=== PATIENT | male | born 1940 | race Caucasian/White ===

== ENCOUNTER 2017-01-01 21:18 | Emergency (ER) | payer MEDICARE, OTHER ==
[~2017-01-01] VITALS: Ht 182.9 cm; Wt 94.4 kg
[2017-01-01 21:21] VITALS: BP 132/90; PULSE 85; RESP 16; TEMP 99.3; O2SAT 96
[2017-01-01] MEDS ORDERED: ROSU10 PO (21:54)
[2017-01-01] MEDS ORDERED: ATEN50TA PO (21:54)
--- NOTE | 2017-01-01 21:54 | PD ---
HPI . Abdominal pain Chief Complaint: Abdominal Pain Time Seen by Provider: 21:44 Travel History International Travel<30 days: No Contact w/Intl Traveler<30days: No Traveled to known affect area: No History of Present Illness HPI Patient presents with abdominal pain that started about 7:00 this morning. He states that the pain has waxed and waned and come and gone. He denies any associated symptoms such as fever, nausea, vomiting, diarrhea, anorexia. No urinary tract symptoms. He reports a prior similar history associated with diverticulitis. PFSH Past Medical History Cardiovascular Problems: Yes Social History Tobacco Use: No Allergies-Medications (Allergen,Severity, Reaction): Coded Allergies: No Known Allergies (Unverified , 01/01/17) Reported Meds & Prescriptions Reported Meds & Active Scripts Active Reported Crestor (Rosuvastatin Calcium) 10 Mg Tab 10 Mg PO 3X PER WEEK Atenolol 50 Mg Tab 50 Mg PO DAILY Review of Systems Except as stated in HPI: all other systems reviewed are Neg General / Constitutional: No: Fever, Chills Gastrointestinal: Positive: Abdominal Pain, No: Nausea, Vomiting, Diarrhea, Loss of Appetite Genitourinary: No: Urgency, Frequency, Dysuria Physical Exam Narrative GENERAL: Healthy-appearing older van no acute distress. SKIN: Warm and dry. HEAD: Atraumatic. Normocephalic. EYES: Pupils equal and round. ENT: No nasal bleeding or discharge. Mucous membranes pink and moist. NECK: Trachea midline. Neck is supple. CARDIOVASCULAR: Regular rate and rhythm. Heart sounds are normal. RESPIRATORY: No accessory muscle use. Lungs are clear with full air movement throughout. GASTROINTESTINAL: Abdomen soft, non-tender, nondistended. Bowel sounds are increased. MUSCULOSKELETAL: No obvious deformities. No edema. NEUROLOGICAL: Awake and alert. No obvious cranial nerve deficits. Motor grossly within normal limits. Normal speech. PSYCHIATRIC: Appropriate mood and affect; insight and judgment normal. Data Data Last Documented VS Vital Signs Date Time Temp Pulse Resp B/P Pulse Ox O2 Delivery O2 Flow Rate FiO2 01/01/17 22:20 75 18 156/83 95 Room Air 01/01/17 21:21 99.3 Orders Complete Blood Count With Diff (01/01/17 21:48) Comprehensive Metabolic Panel (01/01/17 21:48) Lipase (01/01/17 21:48) Urinalysis - C+S If Indicated (01/01/17 21:48) Ct Abd/Pel W Iv Contrast(Rout) (01/01/17 21:48) Iv Access Insert/Monitor (01/01/17 21:48) Ecg Monitoring (01/01/17 21:48) Oximetry (01/01/17 21:48) Sodium Chloride 0.9% Flush (Ns Flush) (01/01/17 22:00) Electrocardiogram (01/01/17 21:48) Labs Laboratory Tests Test 01/01/17 22:10 White Blood Count 8.6 TH/MM3 Red Blood Count 4.92 MIL/MM3 Hemoglobin 15.0 GM/DL Hematocrit 44.9 % Mean Corpuscular Volume 91.1 FL Mean Corpuscular Hemoglobin 30.5 PG Mean Corpuscular Hemoglobin 33.5 % Concent Red Cell Distribution Width 13.1 % Platelet Count 63 TH/MM3 Mean Platelet Volume 8.9 FL Neutrophils (%) (Auto) 48.8 % Lymphocytes (%) (Auto) 41.9 % Monocytes (%) (Auto) 5.7 % Eosinophils (%) (Auto) 0.3 % Basophils (%) (Auto) 3.3 % Neutrophils # (Auto) 4.2 TH/MM3 Lymphocytes # (Auto) 3.6 TH/MM3 Monocytes # (Auto) 0.5 TH/MM3 Eosinophils # (Auto) 0.0 TH/MM3 Basophils # (Auto) 0.3 TH/MM3 CBC Comment AUTO DIFF Differential Comment AUTO DIFF CONFIRMED Platelet Estimate LOW Platelet Morphology Comment NORMAL Red Cell Morphology Comment NORMAL Urine Color YELLOW Urine Turbidity CLEAR Urine pH 6.0 Urine Specific [place] 1.022 Urine Protein TRACE mg/dL Urine Glucose (UA) NEG mg/dL Urine Ketones NEG mg/dL Urine Occult Blood NEG Urine Nitrite NEG Urine Bilirubin NEG Urine Leukocyte Esterase NEG Urine RBC 0-2 /hpf Urine WBC 0-2 /hpf Urine Squamous Epithelial 0-5 /hpf Cells Urine Bacteria NONE /hpf Microscopic Urinalysis Comment CULT NOT INDICATED Sodium Level 141 MEQ/L Potassium Level 4.1 MEQ/L Chloride Level 106 MEQ/L Carbon Dioxide Level 24.5 MEQ/L Anion Gap 11 MEQ/L Blood Urea Nitrogen 17 MG/DL Creatinine 0.86 MG/DL Estimat Glomerular Filtration 86 ML/MIN Rate Random Glucose 97 MG/DL Calcium Level 8.0 MG/DL Total Bilirubin 0.8 MG/DL Aspartate Amino Transf 21 U/L (AST/SGOT) Alanine Aminotransferase 21 U/L (ALT/SGPT) Alkaline Phosphatase 44 U/L Total Protein 7.1 GM/DL Albumin 3.6 GM/DL Lipase 117 U/L MDM Medical Decision Making Medical Screen Exam Complete: Yes Emergency Medical Condition: Yes Medical Record Reviewed: Yes (he does not have any old medical records in our system.) Interpretation(s) EKG shows normal sinus rhythm with no ST segment elevation or depression. He has no old EKGs for comparison. Differential Diagnosis Differential diagnosis of abdominal pain includes but is not limited to gastritis, pancreatitis, hepatitis, gastroenteritis, gallbladder disease, constipation, urinary retention, UTI, peptic ulcer disease, diverticulitis or appendicitis Narrative Course Patient presents for evaluation of abdominal pain. He reports prior diverticulitis. Benign exam. CBC & BMP Diagram 01/01/17 22:10 Patient reports a long history of thrombocytopenia. UA is negative. Liver function studies are normal. CT: 1. Diverticulosis of the sigmoid colon. Small free fluid in the pelvic cavity, nonspecific but potentially on the basis of low-grade diverticulitis. No high- grade inflammatory changes are seen. No evidence of bowel obstruction. 2. Mild splenomegaly, nonspecific. 3. Horseshoe kidney. Tiny nonobstructing stone and a simple/benign-appearing cyst on the left side. 4. Mild atherosclerotic plaque of the abdominal aorta. No aneurysm. 5. 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 6. Lumbar spine degenerative changes. I'll treat him with Cipro and Flagyl for possible early diverticulitis. Diagnosis Primary Impression: Abdominal pain Qualified Code: R10.84 - Generalized abdominal pain Scripts Dicyclomine (Bentyl)20 Mg Tab20 Mg PO QID PRN (abdominal cramping) #20 TAB Ref 0 Prov:Maritza Tabares MD 01/01/17 Metronidazole (Flagyl)500 Mg [id number] Mg PO BID #14 TAB Ref 0 Prov:Maritza Tabares MD 01/01/17 Ciprofloxacin (Cipro)500 Mg [id number] Mg PO BID #20 TAB Ref 0 Prov:Maritza Tabares MD 01/01/17 Disposition: 01 DISCHARGE HOME Condition: Stable Maritza Tabares MD Jan 01, 2017 21:54
[2017-01-01 21:55] VITALS: O2SAT 95
[2017-01-01] MEDS ORDERED: SODIUM CHLORIDE 0.9% FLUSH 5 ML FLUSH IVF PRN (22:00)
[2017-01-01 22:20] VITALS: BP 156/83; PULSE 75; RESP 18; O2SAT 95
[2017-01-01 22:20] LABS: BLOOD, URINE NEG (NEG); GLUCOSE,URINE NEG (NEG); KETONE, URINE NEG (NEG); NITRITE,URINE NEG (NEG)
[2017-01-01 22:22] LABS: AUTOMATED NEUTROPHIL # 4.2 TH/MM3 (1.8-7.7); BASOPHIL # 0.3 TH/MM3 (0-0.2); BASOPHIL % 3.3 % (0.0-2.0); EOSINOPHIL % 0.3 % (0.0-4.0); HEMATOCRIT 44.9 % (39.0-51.0); LYMPH % 41.9 % (9.0-44.0); LYMPHOCYTE # 3.6 TH/MM3 (1.0-4.8); MEAN CELL VOLUME 91.1 FL (80.0-100.0); MEAN CORPUSCULAR HEMOGLOBIN 30.5 PG (27.0-34.0); MEAN CORPUSCULAR HGB CONC 33.5 % (32.0-36.0); MONO % 5.7 % (0.0-8.0); NEUT % 48.8 % (16.0-70.0); PLATELET COUNT 63 TH/MM3 (150-450); RED BLOOD COUNT 4.92 MIL/MM3 (4.50-5.90); RED CELL DISTRIBUTION WIDTH 13.1 % (11.6-17.2); WHITE BLOOD COUNT 8.6 TH/MM3 (4.0-11.0)
[2017-01-01 22:23] LABS: HEMO FLAGS AUTO DIFF
[2017-01-01 22:29] LABS: CHLORIDE 106 MEQ/L (98-107); POTASSIUM 4.1 MEQ/L (3.5-5.1); SODIUM (NA) 141 MEQ/L (136-145)
[2017-01-01 22:33] LABS: ANION GAP 11 MEQ/L (5-15); BICARBONATE 24.5 MEQ/L (21.0-32.0); BLOOD UREA NITROGEN 17 MG/DL (7-18)
[2017-01-01 22:34] LABS: PLATELET ESTIMATE SMEAR LOW (NORMAL)
[2017-01-01 22:35] LABS: PLATELET MORPHOLOGY NORMAL (NORMAL); SCAN/DIFF AUTO DIFF CONFIRMED
[2017-01-01 22:36] LABS: ALT (GPT) 21 U/L (12-78); AST (GOT) 21 U/L (15-37); GLOMERULAR FILTRATION RATE 86 ML/MIN (>89)
[2017-01-01 22:37] LABS: COMMENT (UR) CULT NOT INDICATED; CULTURE IF INDICATED CULT NOT INDICATED; RBC, URINE 0-2 /hpf (0-3); SQUAMOUS EPITHELIAL CELL URINE 0-5 /hpf (0-5); URINE COLOR YELLOW (YELLW/STRAW); WBC, URINE 0-2 /hpf (0-5)
[2017-01-01 22:38] LABS: TOTAL BILIRUBIN ADULT 0.8 MG/DL (0.2-1.0)
[2017-01-01 22:39] LABS: ALKALINE PHOSPHATASE 44 U/L (45-117)
[2017-01-01] MEDS ORDERED: IOHEXOL 350 MG/ML 10 ML VIAL (for RAD DIAG) IV ONE (22:51)
--- NOTE | 2017-01-01 23:37 | RADHPO ---
EXAM DATE/TIME: 01/01/2017 22:57 [facility] COMPARISON: No previous studies available for comparison. INDICATIONS : Diffuse abdominal pain. IV CONTRAST: 91 cc Omnipaque 350 (iohexol) IV ORAL CONTRAST: No oral contrast ingested. RADIATION DOSE: 15.3 CTDIvol (mGy) MEDICAL HISTORY : Aneurysm, abdominal. Diverticulitis. Hypertension. SURGICAL HISTORY : Coronary artery stent. ENCOUNTER: Initial ACUITY: 1 day PAIN SCALE: 7/10 LOCATION: Abdomen. TECHNIQUE: Volumetric scanning of the abdomen and pelvis was performed. Using automated exposure control and ad justment of the mA and/or kV according to patient size, radiation dose was kept as low as reasonably achievable to obtain optimal diagnostic quality images. FINDINGS: LOWER LUNGS: The visualized lower lungs are clear. LIVER: Homogeneous density without lesion. There is no dilation of the biliary tree. No calcified gallston es. SPLEEN: Enlarged at approximately 15.2 cm craniocaudal. No focal splenic lesions seen. Splenic vein and tony l vein are patent. PANCREAS: Within normal limits. KIDNEYS: Horseshoe kidney. 4.3 cm cyst and 2 mm nonobstructing stone on the left. ADRENAL GLANDS: Within normal limits. VASCULAR: Atherosclerotic plaque seen of the abdominal aorta and iliac arteries. No aneurysm. BOWEL/MESENTERY: There is a small hiatal hernia. Mild to moderate diverticulosis seen in the sigmoid colon without acu te inflammatory changes. Normal appendix. Small free fluid is seen in the pelvic cavity. Nothing orga nized or drainable. ABDOMINAL WALL: Within normal limits. RETROPERITONEUM: There is no lymphadenopathy. BLADDER: No wall thickening or mass. REPRODUCTIVE: Radiation seeds are seen of the prostate. INGUINAL: There is no lymphadenopathy or hernia. MUSCULOSKELETAL: No lytic or sclerotic lesion seen of the visualized osseous structures. There are disc and facet dege nerative changes of the lumbar spine. CONCLUSION: 1. Diverticulosis of the sigmoid colon. Small free fluid in the pelvic cavity, nonspecific but potent ially on the basis of low-grade diverticulitis. No high-grade inflammatory changes are seen. No evide nce of bowel obstruction. 2. Mild splenomegaly, nonspecific. 3. Horseshoe kidney. Tiny nonobstructing stone and a simple/benign-appearing cyst on the left side. 4. Mild atherosclerotic plaque of the abdominal aorta. No aneurysm. 5. 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 6. Lumbar spine degenerative changes. Kyree Estrada MD on January 01, 2017 at 23:30 Board Certified Radiologist. This report was verified electronically.
[2017-01-01 23:40] VITALS: BP 163/78; PULSE 78; RESP 18; O2SAT 95
[2017-01-01] MEDS ORDERED: METR-1 PO (23:45)
[2017-01-01] MEDS ORDERED: CIPR-9 PO (23:45)
[2017-01-01] MEDS ORDERED: BENT20TA PO (23:46)
[2017-01-02] MEDS ORDERED: DICYCLOMINE HCL 10 MG CAP PO ONE
[2017-01-02] MEDS ORDERED: metroNIDAZOLE 500 MG TAB PO ONE
[2017-01-02] MEDS ORDERED: CIPROFLOXACIN 500 MG TAB PO ONE
--- NOTE | 2017-01-03 11:11 | EKG ---
Date Performed: 01/01/2017 Time Performed: 21:56:58 PTAGE: 76 years EKG: Ectopic atrial pacer Leftward axis Abnormal ECG NO PREVIOUS TRACING DOCTOR: Prabhu Paredes Interpretating Date/Time 01/03/2017 11:09:43
== END 2017-01-02 00:16 | disposition home or self-care (01) ==
LOC: PHED 21:18
DX: R10.84 Generalized abdominal pain (principal); K57.90 Diverticulosis of intestine, part unspecified, without perforation or abscess without bleeding; R94.31 Abnormal electrocardiogram [ECG] [EKG]; R16.1 Splenomegaly, not elsewhere classified; Z86.79 Personal history of other diseases of the circulatory system; Z87.19 Personal history of other diseases of the digestive system; Z86.2 Personal history of diseases of the blood and blood-forming organs and certain disorders involving the immune mechanism
CPT/HCPCS: 74177; 80053; 81001; 83690; 85025; 93005; 99284; Q9967